=== PATIENT | male | born 1970 | race Hispanic/Latino ===

== ENCOUNTER 2023-11-17 10:09 | Emergency (ER) | payer SELFPAY ==
[2023-11-17 10:22] VITALS: BP 147/83
--- NOTE | 2023-11-17 11:02 | ED.GENMED ---
History of Present Illness
General
Chief Complaint: Skin Problem
Time Seen by Provider: 11/17/23 10:46
History of Present Illness
History of Present Illness:
52-year-old male history of prediabetes presenting with pain and swelling to his buttock starting on Sunday 11/12. Patient denies fever, chills, nausea or vomiting, or abdominal pain. Patient states that similar episode happened a year and a half
ago which improved with antibiotics. Patient denies taking any medications for pain. Patient is Kiny[place]-speaking only, language line #[id number] used for interpretation.
Past History
Past History
ED Past Medical History: HTN, Hypercholesterolemia and NIDDM
ED Past Surgical History: None
Social History
Tobacco: Non-smoker
Alcohol: None
Drug: None
Personal: Single
Living: with family
Phy Exam
Physical Exam
Physical Exam:
General: Alert, no acute distress
Head: NCAT
Eyes: clear conjunctiva
Neck: supple
Cardiac: regular rate and rhythm, no murmur
Lungs: clear to auscultation bilaterally. No wheezes, rales, or rhonchi. Speaking full unlabored sentences. No respiratory distress.
Abdomen: soft, nondistended nontender. No rebound or guarding.
: Area of fluctuance to left superior gluteal cleft with overlying erythema and surrounding induration, tenderness to palpation.
MSK: no lower extremity edema bilaterally. No deformity
Skin: warm, dry
Neuro: Alert and oriented x3. no focal deficits
Course
Orders/Labs/Results
Orders:
Orders
11/17/23 11:09
Amoxicillin 875 mg/Clav 125 mg [Augmentin 875 mg/125 mg] 1 tablet PO NOW STA
Vital Signs
Initial and Last Documented VS:
Initial Vital Signs
Temp Pulse Resp BP Pulse Ox
99.7 F 84 16 147/83 98
11/17/23 10:22 11/17/23 10:22 11/17/23 10:22 11/17/23 10:22 11/17/23 10:22
Last Documented Vital Signs
Temp Pulse Resp BP Pulse Ox
99.7 F 84 16 147/83 98
11/17/23 10:22 11/17/23 10:22 11/17/23 10:22 11/17/23 10:22 11/17/23 10:22
Procedures
Incision/Drainage/Joint Aspiration
Left Superior Buttock:
Anethesia: 1% Lidocaine with Epi
Preparation: cleaned with Betadine
Type of procedure: incise and drain
Nature of site: abscess
Description of abscess: less than 3cm
Loculations broken up: Yes
How much fluid was obtained?: large amount
Fluid description: purulent, bloody and foul smelling
Treatment: packed with gauze and antibiotics started
MDM/Problems Addressed
MDM/Problems Addressed:
Patient presents to the Emergency Department with abscess left superior gluteal cleft
Number and Complexity of Problems Addressed at the Encounter
� Chronic conditions affecting care:
� Acute Exacerbation and/or Progression of Chronic Illness:
� Differential Diagnosis includes: pilonidal abscess, pilonidal cyst, cellulitis
Amount and/or Complexity of Data to be Reviewed and Analyzed
� I performed an independent evaluation of and my interpretation is:
EKG:
CT:
Xrays:
Laboratory Studies:
Other:
� Review of other/old records reveals:
� Clinical information was obtained by an independent historian:
� Prescriptions/Medications Considered but not given:
� Further testing considered but not performed:
Risk of Complications and/or Morbidity or Mortality of Patient Management
� Social Determinants of health affecting care:
� Discussion with other providers (PCP, Hospitalists, Consultants, etc):
� Escalation of care including admission/observation vs risk of discharge considered: 52-year-old male history of diabetes presenting with increased pain and swelling to left superior gluteal cleft starting 11/12. Patient denies fever, chills,
nausea, vomiting, or abdominal pain. Abscess with area of fluctuance to left superior gluteal cleft. Discussed risks versus benefits of incision and drainage. Patient agreeable for I&D. Drained abscess draining foul smelling purulent drainage,
started on Augmentin, discharged with general surgery follow-up
*Critical Care Note
Total Time (30-74mins, 75-104mins- exclusive of procedures): Not Applicable
ED Attending Note
-
Portions of this chart may have been created with voice recognition software.� Occasional wrong word or��sound alike� substitutions may have occurred due to the inherent limitations of voice recognition software.
Discharge Plan
Departure
Patient Disposition: Home (Routine Discharge)
Date of Disposition: 11/17/23
Time of Disposition: 11:09
Patient with high blood pressure during this ER visit?: Yes
Discharge Problem:
Pilonidal abscess
Instructions: Pilonidal cyst, BLOOD PRESSURE
Prescriptions:
New
amoxicillin-pot clavulanate 875-125 mg tablet
1 tab PO BID Qty: 14 0RF
No Action
sulfamethoxazole-trimethoprim [Bactrim DS] 800-160 mg tablet
1 tab PO BID Qty: 14 0RF
ibuprofen 600 mg tablet
600 mg PO Q6H PRN (Reason: fever or pain) Qty: 20 0RF
oseltamivir [Tamiflu] 75 mg capsule
75 mg PO BID 5 Days Qty: 10 0RF
albuterol sulfate 90 mcg/actuation HFA aerosol inhaler
2 inh inhalation Q6H PRN (Reason: shortness of breath or wheezing) Qty: 8.5 0RF
Referrals:
Johnny Patterson MD [Active] -
UNKNOWN - PT DOES,NOT KNOW [Family Provider] -
Activity Restrictions/Additional Instructions:
[place] Augmentin dos veces al d�a shanelle 7 d�as.
Utilice ba�os de asiento
Se coloc� empaque para permitir que siguiera escurriendo. Retirar en 2 d�as si a�n no se [place] ca�do
[place] Tylenol 975 mg cada 6 horas y/o ibuprofeno 800 mg cada 8 horas con alimentos seg�n sea necesario para el dolor.
Seguimiento con cirujano general en 2-3 d�as para revisar la herida.
Regrese al departamento de emergencias si presenta fiebre o s�ntomas nuevos o que empeoran.
Take Augmentin twice daily for 7 days
Use sitz baths
Packing was placed to let to continue to drain. Remove in 2 days if it hasn't fallen out already
Take Tylenol 975mg every 6 hours and/or ibuprofen 800mg every 8 hours with food as needed for pain
Follow up with general surgeon in 2-3 days for wound check
Return to the emergency department for fever or new/worsening symptoms
Interventions
Interventions:
*Risk Screen - Suicide Last Done: 11/17/23 11:03
*Neglect/Abuse Screening Last Done: 11/17/23 11:03
*ED COVID-19 Vaccine History Last Done: 11/17/23 11:03
*Nursing Disposition Last Done: 11/17/23 11:52
ED-Skin Assessment Last Done: 11/17/23 10:58
Discharge Date and Time
Discharge Date/Time: 11/17/23 11:53
Print Language: [place]
[2023-11-17] MEDS: AUGMENTIN 875 MG/125 MG 1 TABLET PO (11:19)
== END 2023-11-17 11:53 | disposition home or self-care (01) ==
LOC: EMR 10:09
PROVIDERS: EMERGENCY PHYSICIAN Emergency Medicine
DX: L05.01 Pilonidal cyst with abscess (principal); E11.9 Type 2 diabetes mellitus without complications; E78.00 Pure hypercholesterolemia, unspecified; I10 Essential (primary) hypertension
CPT/HCPCS: 99282; 10080